=== PATIENT | female | born 1965 | race Caucasian/White ===

== ENCOUNTER 2017-01-15 07:37 | Emergency (ER) ==
[2017-01-15 08:05] LABS: MANUAL DIFF NEEDED? NO
[2017-01-15 08:15] LABS: BASO% 0.7 % (0.0-0.8); EOS# 0.14 X1000 (0.0-0.7); EOS% 1.6 % (0.0-10.0); HEMATOCRIT 36.7 % (37.0-47.0); HEMOGLOBIN 12.2 g/dL (12.0-16.0); IMM GRAN# 0.02 X1000 (0.0-0.04); IMM GRAN% 0.2 % (0.0-0.5); LYMPH# 2.88 X1000 (1.2-3.4); LYMPH% 33.1 % (20.5-51.1); MCH 27.3 PG (27-31); MCHC 33.2 g/dL (33-37); MCV 82.1 FL (81-99); MONO# 0.53 X1000 (0.11-0.59); MONO% 6.1 % (1.7-9.3); MPV 9.2 FL (7.4-10.4); NEUT% 58.3 % (42.2-75.2); PLT 374 X1000 (130-400); RBC 4.47 XMIL (4.2-5.4)
[2017-01-15] MEDS ORDERED: KEFLEX PO ONE (09:28)
[2017-01-15] MEDS ORDERED: MOTRIN PO ONE (09:29)
--- NOTE | 2017-01-15 09:31 | PROVIDER DOCUMENTATION ---
HPI-Rash/Wound/ReCheck - General Chief Complaint: Abscess Stated Complaint: poss abscess Time Seen by Provider: 01/15/17 09:21 Source: patient Allergies/Adverse Reactions: Allergies Allergy/AdvReac Type Severity Reaction Status Date / Time No Known Allergies Allergy Verified 10/20/16 17:24 Home Medications: Home Medication List Medication Instructions Recorded Confirmed Last Taken Type Pantoprazole [Protonix] 40 mg PO DAILY@0700 #30 tablet 12/09/16 Unknown Rx - History of Present Illness-Dermatology Nature of Presenting Problem: pt is a 51 y/o F that presents with left elbow swelling and area that she thinks could be abscess. Denies injury or knowing what happened to elbow. Location: reports: upper extremity (left elbow) Quality: reports: painful Severity: reports: mild Onset/Duration: reports: unsure, 2 days ago, 3 days ago Timing: reports: still present, constant Context/Associated Symptoms: reports: abrasion. denies: fever, sore throat, swelling/mass/lumps Locality of Occurance: Home Similar Symptoms Previously?: No Recently seen or treated by another doctor?: No Review of Systems - Adult - REVIEW OF SYSTEMS - ADULT Constitutional: reports: richard. denies: chills, fever Cardiovascular: denies: chest pain, orthopnea, palpitations, syncope Gastrointestinal: denies: abdominal pain, diarrhea, nausea, vomiting Musculoskeletal: denies: back pain, joint pain, neck pain Integumentary: reports: see HPI Neurological: denies: dizziness/vertigo, headache/migraines Past History - Adult - PAST MEDICAL HISTORY-ADULT Review of Records: reports: Old Records Reviewed, Nursing Assessment Review, Medications Reviewed Major Childhood Illnesses: reports: denies history Cardiovascular: reports: denies history Respiratory: reports: denies history Gastrointestinal: reports: denies history Obstetrical/Gynecological: reports: denies history Genitourinary: reports: denies history Musculoskeletal: reports: denies history Neurological: reports: denies history Endocrine/Immune: reports: denies history Other Conditions: reports: denies history - PRIOR SURGERIES/PROCEDURES Surgical/Procedure History: reports: none - IMMUNIZATION STATUS Childhood Immunizations: See Nurse Assessment Flu Vaccine: See Nurse Assessment - FAMILY HISTORY Family History: reviewed, not pertinent - SOCIAL HISTORY Smoking: non-smoker Living Situation: family Physical Exam-General - PHYSICAL EXAM-ADULT Initial Vital Signs Reviewed: Yes - CONSTITUTIONAL General Appearance: alert, no apparent distress - EYES Eyes: PERRL/EOMI, pink conjunctivae - HEAD, EARS, NOSE, MOUTH & THROAT HENMT: normocephalic/atraumatic, moist mucous membranes, normal ENT inspection - NECK Neck: full range of motion, normal inspection. negative: lymphadenopathy - RESPIRATORY Respiratory: lungs clear, normal breath sounds, no respiratory distress, no accessory muscle use - CARDIOVASCULAR Cardiovascular: regular rate, rhythm, no edema, no murmur - GASTROINTESTINAL (ABDOMEN) Abdominal Exam: normal bowel sounds, non tender, soft - MUSCULOSKELETAL Extremity: normal range of motion, non-tender, normal capillary refill, pelvis stable - SKIN Integumentary: warm/dry, abrasion(s) (left elbow), swelling (left flucuance) Progress - PLAN OF CARE/RESULTS Progress/Plan/Lab Results: Vital Signs Temp Pulse Resp BP Pulse Ox 01/15/17 07:52 98.2 F 98 H 18 136/83 99 No Known Allergies Allergy (Verified 10/20/16 17:24) Pantoprazole [Protonix] 40 mg PO DAILY@0700 #30 tablet 12/09/16 Laboratory 01/15/17 07:53 WBC 8.69 RBC 4.47 Hgb 12.2 Hct 36.7 L MCV 82.1 MCH 27.3 MCHC 33.2 RDW Std Deviation 14.0 Plt Count 374 MPV 9.2 Immature Gran % (Auto) 0.2 Neut % (Auto) 58.3 Lymph % (Auto) 33.1 Anderson % (Auto) 6.1 Eos % (Auto) 1.6 Baso % (Auto) 0.7 Immature Gran # (Auto) 0.02 Neut # (Auto) 5.06 Lymph # (Auto) 2.88 Anderson # (Auto) 0.53 Eos # (Auto) 0.14 Baso # (Auto) 0.06 Orders Category Date Time Status CBC WITH DIFF [HEME] Stat Lab 01/15/17 07:53 Completed Departure - Departure Time of Disposition Order: 09:27 DIAGNOSIS: Abrasion Cellulitis Qualifiers: Site of cellulitis: extremity Site of cellulitis of extremity: upper extremity Laterality: left Qualified Code(s): L03.114 - Cellulitis of left upper limb Disposition: HOME 01 Certified Medical Emergency: Emergent Condition: Stable Additional Instructions: ED Follow Up Instructions: You have been treated by a care provider in the Emergency Department. These instructions are being provided to you so you can have an understanding of how to care for yourself upon discharge. Upon discharge from the Emergency Department, you are responsible for making arrangements for follow-up care by a physician of your choice. Take all prescribed medications as directed. Return to the Emergency Department immediately for any new or worsening symptoms. You may call the Physician Referral phone number at [phone] to obtain a list of Physicians who are taking new patients. Referrals: Amador Joe MD [STAFF PHYSICIAN] - Call for Appoint. 1-2days Instructions: Cellulitis, Abrasion, [id number] Attestation - Scribe Verification/Attestation Scribe:: Kamron Awan Acting as Scribe for:: Arnaud Byers Scribe documention review:: This chart was documented by a scribe and accurately reflects the service the provider performed and the decisions made by the provider. Physician Attestation - Physician Attestation I, the provider, attest to the following statement:: Arnaud Byers Physician documentation Attestation:: This documentation recorded by the scribe accurately reflects the service I personally performed and the decisions made by me.
[2017-01-15 09:43] VITALS: BP 121/82
== END 2017-01-15 09:43 | disposition home or self-care (01) ==
LOC: ED 07:37
DX: L03.114 Cellulitis of left upper limb (principal); S50.312A Abrasion of left elbow, initial encounter; M25.522 Pain in left elbow; M25.422 Effusion, left elbow; R53.83 Other fatigue; R11.0 Nausea
CPT/HCPCS: 85025